=== PATIENT | male | born 2000 | race Caucasian/White ===

== ENCOUNTER 2019-08-17 06:31 | Day surgery (SDC) | payer OTHER ==
[2019-08-14 15:29] VITALS: BMI 30.9
[2019-08-17] MEDS ORDERED: BUPIVACAINE HCL/PF 0.5% (5MG/ML) 10 ML VIAL ONE (06:48)
[2019-08-17] MEDS ORDERED: LIDOCAINE HCL/PF 2% SDV 5ML VIAL ONE (07:27)
[2019-08-17] MEDS ORDERED: PROPOFOL 20 ML ONE ×3 (07:28→07:29)
[2019-08-17] MEDS ORDERED: SUCCINYLCHOLINE CHLORIDE 200 MG/10 ML SYRINGE ONE (07:28)
[2019-08-17] MEDS ORDERED: ONDANSETRON 4 MG/2 ML VIAL IVPUSH PRN (09:01)
[2019-08-17] MEDS ORDERED: oxyCODONE HCL 5 MG TABLET PO PRN (09:01)
[2019-08-17] MEDS ORDERED: PROMETHAZINE HCL 25 MG/1 ML VIAL IVPUSH PRN (09:01)
[2019-08-17] MEDS ORDERED: ONDANSETRON 4 MG/2 ML VIAL ONE (09:24)
[2019-08-17] MEDS ORDERED: oxyCODONE HCL 5 MG TABLET ONE (10:10)
[2019-08-17 10:52] VITALS: TEMP 98.6
[2019-08-17 11:03] VITALS: BP 129/79; PULSE 63
--- NOTE | 2019-08-20 09:27 | OP ---
DATE OF OPERATION: 08/17/2019 PREOPERATIVE DIAGNOSIS: Right long finger boxer's knuckle, i.e., traumatic rupture of extensor sagittal fibers to long finger with long finger extensor tendon subluxation. OPERATIVE PROCEDURE: Right long finger extensor tendon centralization with repair of sagittal fibers and reconstruction of sagittal doyle. SURGEON: Kayden Timmons MD INDUSTRIAL RELATIONS SPECIALIST: STEFANY Duran ANESTHESIA: General. COMPLICATIONS: None. ESTIMATED BLOOD LOSS: Minimal. 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 Risks, benefits and alternatives were discussed with the patient and both of his parents at length and proper informed consent was obtained. PROCEDURE: After proper identification of patient and correct operative site, patient was brought to the operating room, placed supine on the table, prominences well padded. General anesthesia was provided by the anesthesiologist and adequate for procedure. Right upper extremity was prepped and draped in the usual sterile fashion. A well-padded tourniquet was placed over the sterile prep. Esmarch bandage to exsanguinate right upper extremity. Tourniquet was inflated to 250 mmHg. Curvilinear incision was made over the dorsal aspect of the long finger metacarpophalangeal joint. Incision was taken sharply through skin with blunt dissection through the subcutaneous tissues. The patient's radial sagittal fibers were found to be completely ruptured and the extensor tendon was subluxing in an ulnarward direction. Outer ligaments were intact. There was no evidence of capsular injury. A release of the tendons between the long and ring finger was provided and this tendon portion was continued to be traced in a distal fashion, taking a distally based partial-thickness flap of the extensor tendon all the way to the level of the MP joint for reconstruction. The tendon was centralized, but it continued to have a significant tendency to sublux ulnarly. Partial release of the ulnar sagittal fibers was performed. At this point the extensor tendon slip that was created was passed through the radial side of the extensor tendon and passed through the deep ligament on the radial side and reapproximated to itself and secured with 3-0 Ethibond sutures. The hand was then taken through range of motion and there was no further subluxation radially or ulnarly. The radial sagittal fibers were repaired loosely with a 4-0 Vicryl suture. Again, the hand was taken through range of motion and there was no further subluxation of the tendon. The wound was irrigated with copious amount of normal saline and repaired using 5-0 nylon suture. Sterile dressings were applied. Splint with the MP joint in extension and the IP joint free was placed. Patient was reversed from anesthesia and brought to the recovery room in stable condition. He tolerated the procedure well. Konrad Porter, the medical assistant dermatology, was integral throughout the procedure. The procedure could not have been performed without a skilled operative medical assistant dermatology. Luis [id number]
== END 2019-08-17 10:45 | disposition home or self-care (01) ==
LOC: FASU 06:31
PROVIDERS: ATTEND Orthopaedic Surgery Hand Surgery
PROC: 0LS70ZZ Reposition Right Hand Tendon, Open Approach (ICD-10-PCS; principal; 2019-08-17 07:45)
DX: S66.312A Strain of extensor muscle, fascia and tendon of right middle finger at wrist and hand level, initial encounter (principal); S66.392A Other injury of extensor muscle, fascia and tendon of right middle finger at wrist and hand level, initial encounter; X58.XXXA Exposure to other specified factors, initial encounter; Y93.9 Activity, unspecified; Y92.9 Unspecified place or not applicable
CPT/HCPCS: 94760